=== PATIENT | male | born 1965 | race African-American/Black ===

== ENCOUNTER 2021-06-13 18:20 | Inpatient (IN) | payer MEDICAID, SELFPAY ==
[~2021-06-13] VITALS: Ht 172.7 cm; Wt 90.7 kg
[2021-06-13 18:29] VITALS: BP 101/71
--- NOTE | 2021-06-13 18:29 | NUR ---
biba to bed 11.
--- NOTE | 2021-06-13 18:46 | NUR ---
55 YO MALE BIBA C/O UNWITNESSED SYNCOPAL EPISODE AT HOME PT WAS FOUND ON THE FLOOR BY FAMILY. PT STATED HE WAS WALKING, FELT LIGHT HEADED THEN FAINTED. C/O CONTINUOUS HEADACHE 08/04 DESCRIBES THROBBING-ACHING, NON RADIATING. PT C/O SOB, LUNG SOUNDS DIMINISHED TO BILATERAL BASES. CAP REFIL <3SEC. NO EDEMA PRESENT. ABDOMEN DISTENDED, +ASCITIES. PATIENT A&OX4, EVEN AND UNLABORED RESPIRATIONS AT THIS TIME. PT LAYING IN BED WITH HOB AT 90 DEGREES. BED IN LOWEST POSITION, X2 SIDERAILS UP FOR SAFETY. hx of HTN, DM, and NM, CHF nkda
--- NOTE | 2021-06-13 19:26 | NUR ---
REPORT RECEIVED FROM HASMUKH HENRY, FOR CONTINUITY OF CARE
--- NOTE | 2021-06-13 19:26 | NUR ---
REPORT GIVEN TO SHEFALI HENRY, TRANSFER OF CARE AT THIS TIME.
--- NOTE | 2021-06-13 19:31 | NUR ---
Dr. Pereira examining patient.
[2021-06-13] MEDS ORDERED: NACL 0.9% 1,000 ML IV ONE (19:55)
[2021-06-13] MEDS ORDERED: methylPREDNISolone SS 125 MG/2 ML VIAL IVP ONE (20:15)
[2021-06-13] MEDS ORDERED: ALBUTEROL SULFATE/IPRATROPIU 3 ML SOL IH ONE (20:15)
[2021-06-13 20:25] LABS: BASOPHILS # (AUTO) 0.1 K/uL (0.00-0.22); BASOPHILS % (AUTO) 0.9 % (0.0-2.0); EOSINOPHILS % (AUTO) 0.7 % (0.0-4.0); HEMATOCRIT 42.8 % (36-52); HEMOGLOBIN 13.7 g/dL (12.0-18.0); LYMPHOCYTES # (AUTO) 1.4 K/uL (2.0-11.5); LYMPHOCYTES % (AUTO) 18.6 % (20.5-51.1); MEAN CORPUSCULAR HEMOGLOBIN 27 pg (27-31); MEAN CORPUSCULAR HGB CONC 32 g/dL (33-37); MEAN CORPUSCULAR VOLUME 84.4 fL (80-94); MONOCYTES # (AUTO) 0.7 K/uL (0.8-1.0); MONOCYTES % (AUTO) 9.7 % (1.7-9.3); NEUTROPHILS # (AUTO) 5.2 K/uL (1.8-7.7); NEUTROPHILS % (AUTO) 70.1 % (42.2-75.2); PLATELET COUNT (AUTO) 159 K/uL (140-450); RED BLOOD CELL COUNT(AUTO) 5.07 MIL/uL (4.20-6.10); RED CELL DISTRIBUTION WIDTH 19.6 % (11.6-13.7); WHITE BLOOD COUNT (AUTO) 7.5 K/uL (4.8-10.8)
--- NOTE | 2021-06-13 20:30 | NUR ---
EKG PERFORMED AT BEDSIDE. EKG READS SINUS RHYTHM @ 82
[2021-06-13 20:38] LABS: ALBUMIN 3.7 g/dL (3.4-5.0); ANION GAP 21.8 (8-16); ASPARTATE AMINOTRANSFERASE 33 U/L (15-37); CARBON DIOXIDE 20.1 mmol/L (21-32); CHLORIDE 102 mmol/L (98-107); GFR ARICAN-AMERICAN 45 mL/min (>90); GLUCOSE 83 mg/dL (74-106); SODIUM SERUM 138 mmol/L (136-145); TOTAL BILIRUBIN 2.1 mg/dL (0.0-1.0); UREA NITROGEN, BLOOD 22 mg/dL (7-18)
--- NOTE | 2021-06-13 20:41 | NUR ---
PT TAKEN TO CT
--- NOTE | 2021-06-13 20:41 | NUR ---
Lay mcdonald in [facility] - 06/13/21 at 2042 by PORSCHE PT TAKEN TO BED 11
[2021-06-13 20:54] LABS: POTASSIUM 5.9 mmol/L (3.5-5.1)
[2021-06-13] MEDS ORDERED: methylPREDNISolone SS 125 MG/2 ML VIAL ONE (21:24)
--- NOTE | 2021-06-13 21:30 | NUR ---
PATIENT APPEARS TO BE DIAPHORETIC AND COLD. WARM BLANKETS GIVEN, ACCUCHECK DONE. ERMD MADE AWARE
[2021-06-13] MEDS ORDERED: ENOXAPARIN 80 MG/0.8 ML SYR SUBQ ONE (22:45)
[2021-06-13] MEDS ORDERED: INSULIN REGULAR, HUMAN 100 UNIT/ML VIAL SUBQ ONE (23:05)
[2021-06-13] MEDS ORDERED: CALCIUM GLUCONATE 10% 1000 MG/10 ML VIAL IVP ONE (23:05)
[2021-06-13] MEDS ORDERED: DEXTROSE 50% 50 ML SYR IVP ONE (23:05)
[2021-06-13] MEDS ORDERED: INSULIN REGULAR, HUMAN 100 UNIT/ML VIAL IVP ONE (23:45)
--- NOTE | 2021-06-14 01:25 | NUR ---
CALLED [facility] FOR BED, SPOKE TO RADHA
[2021-06-14] MEDS ORDERED: QUET300T26 PO (01:36)
[2021-06-14] MEDS ORDERED: INSU100I7 SQ (01:36)
[2021-06-14] MEDS ORDERED: CARV6.252 PO (01:36)
[2021-06-14] MEDS ORDERED: CLOP75TA55 PO (01:36)
--- NOTE | 2021-06-14 01:39 | NUR ---
Patient will be admitted to care of DR. CELIS. Admited to TELEMMETRY. Will go to room 121 A. Belongings list completed. Report to LINDA HENRY.
--- NOTE | 2021-06-14 01:42 | NUR ---
RECIEVED PT ADMISSION FROM ER NURSE, PT BIB VIA MAT, ABLE TO SLIDE ONTO NEW BED W/ STANDY ASSISTANCE, A&0X4, ABLE TO FOLLOW COMMANDS, AFEBRILE, VSS (BP 111/88, MN 83, RR 17, TEMP 96.3, 02 SAT 96%), ON NC 3LPM, SKIN WARM DRY AND INTACT, ABD SOFT AND NON TENDER TO TOUCH, BELONGINGS AT BEDSIDE, PT SHOWING NO SIGNS OF ACUTE DISTRESS, SAFETY MEASURES IN PLACE, WILL CONTINUE WITH CURRENT POC
[2021-06-14 01:45] VITALS: BP 111/88
--- NOTE | 2021-06-14 02:45 | NUR ---
PT ASLEEP AND SHOWING NO SIGNS OF ACUTE DISTRESS
[2021-06-14 04:00] VITALS: BP 121/93
--- NOTE | 2021-06-14 04:49 | NUR ---
ASSISTED PT W/ MORNING CARE, PT SHOWING NO SIGNS OF ACUTE DISTRESS
[2021-06-14 06:10] LABS: CARBON DIOXIDE 18.5 mmol/L (21-32); CREATININE 2.2 mg/dL (0.6-1.3); POTASSIUM 5.5 mmol/L (3.5-5.1); TOTAL BILIRUBIN 2.4 mg/dL (0.0-1.0)
[2021-06-14 06:15] LABS: BASOPHILS % (AUTO) 0.4 % (0.0-2.0); EOSINOPHILS % (AUTO) 0.1 % (0.0-4.0); HEMATOCRIT 41.9 % (36-52); HEMOGLOBIN 13.3 g/dL (12.0-18.0); LYMPHOCYTES % (AUTO) 11.9 % (20.5-51.1); MEAN CORPUSCULAR HEMOGLOBIN 27 pg (27-31); MEAN CORPUSCULAR HGB CONC 32 g/dL (33-37); MEAN CORPUSCULAR VOLUME 84.6 fL (80-94); MONOCYTES # (AUTO) 0.5 K/uL (0.8-1.0); MONOCYTES % (AUTO) 5.7 % (1.7-9.3); NEUTROPHILS # (AUTO) 6.8 K/uL (1.8-7.7); NEUTROPHILS % (AUTO) 81.9 % (42.2-75.2); PLATELET COUNT (AUTO) 137 K/uL (140-450); RED BLOOD CELL COUNT(AUTO) 4.95 MIL/uL (4.20-6.10); RED CELL DISTRIBUTION WIDTH 20.3 % (11.6-13.7); WHITE BLOOD COUNT (AUTO) 8.3 K/uL (4.8-10.8)
--- NOTE | 2021-06-14 07:37 | NUR ---
ENDORSED TO DAY SHIFT RN FOR CONTINUITY OF CARE
--- NOTE | 2021-06-14 07:37 | NUR ---
RECEIVED BEDSIDE REPORT FROM MEDICAL LIAISON NURSE. PT SITTING IN BED, AWAKE AND ALERT. BREATHING EVEN AND UNLABORED, NO SIGNS OF ACUTE DISTRESS NOTED ON 3L NC. R AC 20G, EDER 20G SL. SAFETY MEASURES IN PLACE.
[2021-06-14 08:00] VITALS: BP 131/98
[2021-06-14] MEDS ORDERED: MORPHINE SULFATE 2 MG/ML SYR IVP PRN (08:25)
[2021-06-14] MEDS ORDERED: DOCUSATE SODIUM 100 MG GELCAP PO PRN (08:25)
[2021-06-14] MEDS ORDERED: HYDROcodone/APAP 5/325 MG 1 TAB TAB PO PRN (08:25)
[2021-06-14] MEDS ORDERED: ACETAMINOPHEN 325 MG TAB PO PRN (08:25)
[2021-06-14] MEDS ORDERED: ONDANSETRON 4 MG/2 ML VIAL IVP PRN (08:25)
[2021-06-14] MEDS ORDERED: DEXTROSE 50% 50 ML SYR IVP PRN ×2 (08:30→13:45)
[2021-06-14] MEDS ORDERED: SODIUM ZIRCONIUM CYCLOSILICATE 10 GM POWD.PACK PO SCH (09:00)
[2021-06-14] MEDS: NACL 0.9% 1,000 ML IV SCH (09:40)
[2021-06-14] MEDS: ENOXAPARIN 80 MG/0.8 ML SYR SUBQ SCH ×2 (09:41→20:53)
--- NOTE | 2021-06-14 09:43 | NUR ---
IP NETWORK ARCHITECT AT BEDSIDE AT THIS TIME. PATIENT STABLE.
[2021-06-14 09:50] LABS: PROTHROMBIN TIME 16.9 secs (10.8-13.4)
[2021-06-14 10:00] LABS: FREE T4 (FREE THYROXINE) 0.65 ng/dL (0.76-1.46); PHOSPHORUS 6.3 mg/dL (2.5-4.9); THYROID STIMULATING HORMONE 1.66 uIU/mL (0.34-3.74)
[2021-06-14] MEDS ORDERED: FUROSEMIDE 20 MG/2 ML VIAL IVP SCH (10:05)
--- NOTE | 2021-06-14 10:45 | NUR ---
ADMINISTERED SCHEDULED MEDS PER MD ORDER. MED EDUCATION PROVIDED, PATIENT VERBALIZES UNDERSTANDING.
[2021-06-14] MEDS: INSULIN LISPRO SLIDING SCALE 100 UNITS/ML VIAL SUBQ PRN ×3 (11:52→21:02)
[2021-06-14] MEDS: BLOOD GLUCOSE MONITORING 1 DEV DEV FS SCH ×3 (11:53→21:00)
[2021-06-14 12:00] VITALS: BP 123/62
[2021-06-14] MEDS ORDERED: INSULIN LISPRO SLIDING SCALE 100 UNITS/ML VIAL SUBQ PRN (13:45)
--- NOTE | 2021-06-14 15:49 | NUR ---
PATIENT HAS BEEN SCREENED AND CATEGORIZED LOW NUTRITION RISK. PATIENT WILL BE SEEN WITHIN 7 DAYS OF ADMISSION. 06/20/[address]
[2021-06-14 16:00] VITALS: BP 117/77
[2021-06-14] MEDS ORDERED: BLOOD GLUCOSE MONITORING 1 DEV DEV FS SCH (16:30)
--- NOTE | 2021-06-14 19:40 | NUR ---
ENDORSED TO NIGHTSHIFT NURSE FOR CONTINUITY OF CARE. PATIENT STABLE AT THIS TIME.
[2021-06-14 20:00] VITALS: BP 123/86
--- NOTE | 2021-06-14 20:00 | NUR ---
PATIENT WAS RECEIVED AWAKE BUT TALKATIVE SEEMS CONFUSED., IV WAS PULLED OUT BY THE PATIENT NEEDING A NEW ONE CHARGE NURSE PUT A NEW ONE IN PATIENTS LEFT FA, PICKED UP BY THE RADIOLOGY STAFF FOR VQ SCANNING.
--- NOTE | 2021-06-14 20:21 | NUR ---
HUMULIN R 5 UNITS UNSIGNED FOR UNKNOWN REASON. NO REPORT FROM PREVIOUS NURSE.
--- NOTE | 2021-06-14 20:24 | NUR ---
CALCIUM GLUCONATE 1 GRAM UNSIGNED FOR UNKNOWN REASON. NO REPORT FROM PREVIOUS NURSE.
[2021-06-14] MEDS: LORazepam 2 MG/ML VIAL IM/IVP PRN (21:17)
[2021-06-14] MEDS: FUROSEMIDE 20 MG/2 ML VIAL IVP SCH (21:24)
[2021-06-14] MEDS: carvediloL 6.25 MG TAB PO SCH (21:25)
[2021-06-14] MEDS: ZOLPIDEM 5 MG TAB PO PRN (22:39)
[2021-06-15] VITALS: BP 115/79
[2021-06-15 04:00] VITALS: BP 121/79
[2021-06-15] MEDS: FUROSEMIDE 20 MG/2 ML VIAL IVP SCH ×3 (05:00→21:01)
[2021-06-15 05:50] LABS: BASOPHILS % (AUTO) 0.1 % (0.0-2.0); HEMATOCRIT 38.2 % (36-52); HEMOGLOBIN 12.2 g/dL (12.0-18.0); LYMPHOCYTES # (AUTO) 0.8 K/uL (2.0-11.5); LYMPHOCYTES % (AUTO) 7.2 % (20.5-51.1); MEAN CORPUSCULAR HEMOGLOBIN 27 pg (27-31); MEAN CORPUSCULAR HGB CONC 32 g/dL (33-37); MEAN CORPUSCULAR VOLUME 83.2 fL (80-94); MONOCYTES # (AUTO) 0.7 K/uL (0.8-1.0); MONOCYTES % (AUTO) 6.3 % (1.7-9.3); NEUTROPHILS # (AUTO) 9.7 K/uL (1.8-7.7); NEUTROPHILS % (AUTO) 86.4 % (42.2-75.2); PLATELET COUNT (AUTO) 153 K/uL (140-450); RED BLOOD CELL COUNT(AUTO) 4.59 MIL/uL (4.20-6.10); RED CELL DISTRIBUTION WIDTH 19.8 % (11.6-13.7); WHITE BLOOD COUNT (AUTO) 11.2 K/uL (4.8-10.8)
[2021-06-15 06:02] LABS: CARBON DIOXIDE 21.9 mmol/L (21-32); CREATININE 1.8 mg/dL (0.6-1.3); POTASSIUM 4.9 mmol/L (3.5-5.1)
[2021-06-15 06:07] LABS: MAGNESIUM 2.3 mg/dL (1.8-2.4); PHOSPHORUS 3.8 mg/dL (2.5-4.9)
[2021-06-15] MEDS: BLOOD GLUCOSE MONITORING 1 DEV DEV FS SCH ×4 (07:40→21:15)
--- NOTE | 2021-06-15 07:45 | NUR ---
RECEIVED BEDSIDE REPORT FROM FRUIT PRESERVER NURSE. PATIENT SITTING ON SIDE OF BED, AWAKE AND ALERT, ABLE TO MAKE NEEDS KNOWN. BREATHING EVEN AND UNLABORED, NO SIGNS OF ACUTE DISTRESS NOTED. DENIES PAIN, SKIN INTACT. SAFETY MEASURES IN PLACE.
[2021-06-15 08:00] VITALS: BP 103/75
[2021-06-15] MEDS: NACL 0.9% 1,000 ML IV SCH (08:16)
[2021-06-15] MEDS: carvediloL 6.25 MG TAB PO SCH ×2 (09:00→21:02)
[2021-06-15] MEDS: ENOXAPARIN 80 MG/0.8 ML SYR SUBQ SCH ×2 (09:54→20:58)
[2021-06-15] MEDS: CLOPIDOGREL 75 MG TAB PO SCH (09:55)
[2021-06-15] MEDS: QUEtiapine FUMARATE 100 MG TAB PO SCH (09:55)
--- NOTE | 2021-06-15 09:55 | NUR ---
ADMINISTERED SCHEDULED MEDS PER MD ORDER. MED EDUCATION PROVIDED, REINFORCEMENT NEEDED. BP MED HELD DUE TO LOW BP, SEE VITAL SIGN INTERVENTIONS.
--- NOTE | 2021-06-15 10:00 | NUR ---
DR CELIS ROUNDING ON PATIENT AT BEDSIDE.
--- NOTE | 2021-06-15 11:17 | NUR ---
DC PLANNING: CM SPOKE WITH PATIENT AT BEDSIDE. PATIENT WAS VERY OUT OF BREATH, ABLE TO SPEAK IN SHORT SENTENCES. PATIENT BLACKED OUT AT HIS GIRLFRIEND'S HOUSE, STATES THIS IS FIRST TIME THIS HAS HAPPENED. HAS DIABETES AND CHF, NONCOMPLIANT WITH DIABETIC MANAGEMENT AND SMOKES. STATES HE IS ON LASIX, HAS BEEN SOB FOR SOME TIME, DOES TELEHEALTH VISITS WITH HIS PCP. LIVES IN A SECOND FLOOR APARTMENT WITH STAIR ACCESS, [place] BUT WAS VISITING HIS MOTHER AND GIRLFRIEND WHO LIVE LOCALLY. PATIENT LIVES ALONE, RECEIVES INCOME OF DISABILITY ($947/MO) AND FOOD STAMPS. HAS A GLUCOMETER WHICH HE STATES HE USES, NO OTHER DME OR HISTORY OF HOME HEALTH SERVICE. STATES HE WOULD LIKE A CANE OR FWW HE HOLDS ON TO FURNITURE AND QUINONEZ FOR STABILITY. PATIENT STATES HE WILL RETURN HOME ONCE DC'D, CM LET HIM KNOW THAT HE WILL NOT QUALIFY FOR O2. PATIENT ASKED ABOUT PAYING OUT OF POCKET, CM TOLD HIM THE AVERAGE COST, HE STATES HE CAN'T AFFORD IT. DISCUSSED SMOKING CESSATION AND MEDICATION COMPLIANCE WELL ADA DIET AND EXERCISE. CM WILL CONTINUE TO FOLLOW FOR NEEDS.
[2021-06-15 12:00] VITALS: BP 124/91
[2021-06-15] MEDS: INSULIN LISPRO SLIDING SCALE 100 UNITS/ML VIAL SUBQ PRN ×2 (12:00→16:57)
[2021-06-15] MEDS: LACTULOSE 20 GM/30 ML UDC PO SCH ×2 (13:30→20:57)
[2021-06-15 16:00] VITALS: BP 116/81
--- NOTE | 2021-06-15 17:57 | NUR ---
URINE SPECIMEN COLLECTED AND DELIVERED TO LABORATORY.
[2021-06-15 18:29] LABS: APPEARANCE,URINE CLEAR (CLEAR); BILIRUBIN,URINE NEGATIVE (NEGATIVE); BLOOD, URINE NEGATIVE (NEGATIVE); COLOR,URINE YELLOW (YELLOW); LEUKOCYTE ESTERASE ,URINE NEGATIVE (NEGATIVE); NITRITE, URINE NEGATIVE (NEGATIVE); PH,URINE 5.5 (5.0-9.0); UGLUCOSE NEGATIVE (NEGATIVE)
[2021-06-15 18:45] LABS: BARBITURATE, URINE NEGATIVE ng/ml (NEG <=200); BENZODIAZEPINE, URINE NEGATIVE ng/mL (NEG <=200); CANNABINOID, URINE NEGATIVE ng/mL (NEG <=50); COCAINE, URINE POSITIVE ng/mL (NEG <=300); OPIATE, URINE NEGATIVE ng/mL (NEG <=2000); PHENCYCLIDINE SCREEN,URINE NEGATIVE ng/mL (NEG <=25)
--- NOTE | 2021-06-15 19:49 | NUR ---
ENDORSED TO PROFILE GRINDER NURSE FOR CONTINUITY OF CARE. PATIENT STABLE AT THIS TIME.
--- NOTE | 2021-06-15 19:50 | NUR ---
RECEIVED REPORT FROM AM RN. PT AAOX3, W/ DELAYED RESPONSE DURING CONVERSATION, HOWEVER ABLE TO RESPOND, SPEECH, SLUGGISH IF HE WAS INTOXICATED. VS WNL, MOTHER AT BEDSIDE. PT PENDING ORDERED CT SCAN. AT PRESENT VS DONE WNL BP 113/80, P 92, RR 18, PO2 97% ON RA, NAD NOTED.WILL CONT TO MONITOR.
--- NOTE | 2021-06-15 19:53 | NUR ---
PT ON ROOM AIR WITH SPO2 OF 96%. PT IS IN NO RESPIRATORY DISTRESS AT THIS TIME.
[2021-06-15 20:00] VITALS: BP 113/80
--- NOTE | 2021-06-15 22:45 | NUR ---
PT SITTING UP IN BED, HE IS COMPLAINING OF 7/10 PAIN , HE WAS GIVEN IVP/PRN MORPHINE FOR BACK AND NECK PAIN. IV SITE INTACT AND FLUSHED PATENT. PT ALSO REDIRECTED TO LAY DOWN IN BED. 2 LITERS N/C AGAIN PLACE ON PT FOR C/OF SOB. ALL FALLS PRECAUTIONS IN PLACE.
--- NOTE | 2021-06-15 23:15 | NUR ---
MED PASS DONE, PT TOLERATED PO MEDS WELL, MOTHER AT BED SIDE. PT CALM AT PRESENT W/ FREQUENT BATHROOM RUNS S/P IV LASIX ADMIN. NO S/S OF DISTRESS NOTED.
[2021-06-16 00:05] VITALS: BP 131/89
[2021-06-16] MEDS: ZOLPIDEM 5 MG TAB PO PRN (00:41)
[2021-06-16] MEDS: LORazepam 2 MG/ML VIAL IM/IVP PRN (00:42)
[2021-06-16 04:00] VITALS: BP 127/84
[2021-06-16 05:35] LABS: BASOPHILS % (AUTO) 0.1 % (0.0-2.0); EOSINOPHILS % (AUTO) 0.5 % (0.0-4.0); HEMATOCRIT 39.6 % (36-52); HEMOGLOBIN 12.5 g/dL (12.0-18.0); LYMPHOCYTES # (AUTO) 1.8 K/uL (2.0-11.5); LYMPHOCYTES % (AUTO) 21.2 % (20.5-51.1); MEAN CORPUSCULAR HEMOGLOBIN 27 pg (27-31); MEAN CORPUSCULAR HGB CONC 32 g/dL (33-37); MEAN CORPUSCULAR VOLUME 84.8 fL (80-94); MONOCYTES # (AUTO) 0.7 K/uL (0.8-1.0); MONOCYTES % (AUTO) 8.4 % (1.7-9.3); NEUTROPHILS % (AUTO) 69.8 % (42.2-75.2); PLATELET COUNT (AUTO) 158 K/uL (140-450); RED BLOOD CELL COUNT(AUTO) 4.67 MIL/uL (4.20-6.10); RED CELL DISTRIBUTION WIDTH 20.3 % (11.6-13.7); WHITE BLOOD COUNT (AUTO) 8.6 K/uL (4.8-10.8)
[2021-06-16 06:15] LABS: ANION GAP 13.1 (8-16); CARBON DIOXIDE 25.7 mmol/L (21-32); CREATININE 1.4 mg/dL (0.6-1.3); POTASSIUM 3.8 mmol/L (3.5-5.1)
[2021-06-16 06:37] LABS: MAGNESIUM 2.3 mg/dL (1.8-2.4); PHOSPHORUS 3.6 mg/dL (2.5-4.9)
[2021-06-16] MEDS: BLOOD GLUCOSE MONITORING 1 DEV DEV FS SCH ×4 (06:47→20:26)
[2021-06-16] MEDS: FUROSEMIDE 20 MG/2 ML VIAL IVP SCH ×2 (06:47→12:36)
--- NOTE | 2021-06-16 07:30 | NUR ---
REPORT TO AM RN. PT GIVEN AM LASIX 40 MG IVP, BS DONE 122 MG/DL. ASLEEP AT INTERVALS, RESTLESS AT TIMES, AT PRESENT CALM, RESTING. NAD NOTED.
--- NOTE | 2021-06-16 07:32 | NUR ---
RECEIVED REPORT FROM OPTICAL ADVISOR NURSE. SHE REPORTS THAT PT WAS STABLE ALL NIGHT. HAD CT LAST NIGHT, RESULTS PENDING. LAST BP WAS 127/84 AND HR 93. AA&O X 3 WITH SOME DELAYS. CARDIAC RHYTHM SINUS TACH. LAST BLOOD GLUCOSE THIS MORNING WAS 122. HAS PATENT IV IN L FOREARM 22 GAUGE SET FOR 20 ML, CURRENTLY ON HOLD. PATIENT CURRENTLY STABLE. WILL CONTINUE TO MONITOR.
[2021-06-16 08:00] VITALS: BP 137/100
[2021-06-16] MEDS: NACL 0.9% 1,000 ML IV SCH (09:35)
[2021-06-16] MEDS: carvediloL 6.25 MG TAB PO SCH ×2 (09:45→20:24)
[2021-06-16] MEDS: QUEtiapine FUMARATE 100 MG TAB PO SCH (09:45)
[2021-06-16] MEDS: LACTULOSE 20 GM/30 ML UDC PO SCH (09:46)
[2021-06-16] MEDS: CLOPIDOGREL 75 MG TAB PO SCH (09:46)
[2021-06-16] MEDS: ENOXAPARIN 80 MG/0.8 ML SYR SUBQ SCH (09:47)
--- NOTE | 2021-06-16 09:52 | NUR ---
ADMINISTERED 0900 MEDS. BP 137/100 AND HR WNL FOR CARVEDOLOL. PLATELETS AND APTT WNL FOR LOVENOX. PATIENT TOLERATED WELL. WILL CONTINUE TO MONITOR.
[2021-06-16] MEDS: INSULIN LISPRO SLIDING SCALE 100 UNITS/ML VIAL SUBQ PRN ×2 (11:34→20:20)
[2021-06-16 12:00] VITALS: BP 125/90
--- NOTE | 2021-06-16 12:00 | NUR ---
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 SAFETY MEASURES IN PLACE AND CALL LIGHT WITHIN REACH. WILL CONTINUE TO MONITOR.
--- NOTE | 2021-06-16 13:00 | NUR ---
PT PULLED OUT HIS IV. PLACED GAUZE AND BANDAGE TO COVER SITE. WILL CONTINUE TO MONITOR.
--- NOTE | 2021-06-16 15:30 | NUR ---
PLACED 22 GAUGE IV IN L FOREARM. CONFIRMED PLACEMENT AND PATENCY. WILL CONTINUE TO MONITOR.
[2021-06-16 16:00] VITALS: BP 124/95
--- NOTE | 2021-06-16 16:00 | NUR ---
PATIENT SEEN BY DR CORTEZ AND GAVE PT STATUS .
[2021-06-16 16:26] LABS: CREATININE,URINE RANDOM 37 mg/dL (30-125); URINE SODIUM, RANDOM 32 mmol/l (40-220)
--- NOTE | 2021-06-16 17:03 | NUR ---
BLOOD SUGAR 95 MG/DL NO INSULIN COVERAGE GIVEN PT IS DROWSY AND SITTING.WILL CONTINUE TO MONITOR.
[2021-06-16] MEDS ORDERED: LACTULOSE 20 GM/30 ML UDC PO SCH (17:20)
--- NOTE | 2021-06-16 19:30 | NUR ---
RECEIVED REPORT AT BEDSIDE FOR CONTINUITY OF CARE, PT IN STABLE CONDITION. PT LYING IN BED, HE HAS N/C OFF. HE IS DROWSY BUT AROUSABLE TO NAME AND LIGHT TOUCH. ENCOURAGED PT TO PLACE ON N/C, BUT HE SAID HE DOESN'T WANT IT ON AT THIS TIME. HE HAS A R/FA 20G INTACT. NOT RUNNING NORMAL SALINE AT THIS TIME, BECAUSE PT KEEPS GETTING OUT OF BED AND OR AT LEAST MOVING AROUND IN BED AND SITTING UP. PT HAS NOT BEEN CAREFUL WITH IV SITE AND RECENTLY PULLED OUT HIS PREVIOUS IV SITE LAST SHIFT. IV SITE LIGHTLY WRAPPED UP WITH DEMETRA BANDAGE IT WAS FLUSHED PATENT WITH NO RESISTANCE. ALL FALLS PRECAUTIONS IN PLACE. FAMILY VISITOR AT BEDSIDE. ALL FALLS PRECAUTIONS IN PLACE.
--- NOTE | 2021-06-16 19:31 | NUR ---
ENDORSED TO NIGHT NURSE FOR CONTINUITY OF CARE.
[2021-06-16 20:00] VITALS: BP 117/88
--- NOTE | 2021-06-16 20:10 | NUR ---
VISITOR LEFT BEDSIDE, PT IS AWAKE, BUT REMAINS CONFUSED, V/S FOLLOWS: T 97.7 P 90 R 18 B/P 117/88 02 100% WITH 2 LITERS VIA N/C. PT FINGERSTICK IS 159. PT REDIRECTED TO STAY IN BED BECAUSE HE IS A FALLS RISK. URINAL AND TRAY TABLE WITHIN REACH. ALL FALLS PRECAUTIONS IN PLACE.
--- NOTE | 2021-06-16 21:00 | NUR ---
PT GIVEN 2 UNITS OF HUMALOG PER SLIDING SCALE, PT ALSO GIVEN COREG ORDERED. EDUCATION REGARDING MEDICATION PROVIDED AT BEDSIDE, REINFORCEMENT NEEDED. PT AGAIN PLACED ON 2 LITERS AND ENCOURAGE TO KEEP 02 ON. PT ABDOMEN FIRM AND DISTENDED. PT REDIRECTED NOT TO GET OUT OF BED UNASSISTED. PT WAS NOTED SITING UP IN BED AND THE STANDING OVER BED MAKING HIS BED. PT ASSISTED TO BE MADE COMFORTABLE AND REMINDED THAT HE IS A FALLS RISK AND TO STAY IN BED, IF HE NEEDS TO USE THE TOILET FOR A BM TO HAVE STAFF ASSIST HIM. PT VERBALIZED UNDERSTANDING. WILL CONTINUE WITH FALLS PROTOCOLS AND FREQUENT ROUNDS.
--- NOTE | 2021-06-16 22:45 | NUR ---
PT SITING UP IN BED, HE HAS C/O OF 8/10 PAIN, HE WAS GIVEN PRN IVP MORPHINE, PT ENCOURAGED TO LAY DOWN IN BED AND PLACE 02 ON. TRAY TABLE AND URINAL AT BEDSIDE. ALL OTHER FALLS PRECAUTIONS IN PLACE.
[2021-06-17] VITALS: BP 126/84
--- NOTE | 2021-06-17 00:30 | NUR ---
PT SITTING UP IN BED NO C/O VOICED V/S FOLLOWS: T 97.9 P 94 R 18 B/P 126/84 02 96% ON ROOM AIR. ALL FALLS PRECAUTIONS IN PLACE. PT SAID HE IS OK WITH NO C/O VOICED.
--- NOTE | 2021-06-17 02:00 | NUR ---
PT SITTING UP IN BED, NO C/O VOICED ALL FALLS PRECAUTIONS IN PLACE.
[2021-06-17 04:00] VITALS: BP 151/94
[2021-06-17 05:34] LABS: BASOPHILS # (AUTO) 0.1 K/uL (0.00-0.22); BASOPHILS % (AUTO) 1.8 % (0.0-2.0); EOSINOPHILS # (AUTO) 0.1 K/uL (0-0.4); EOSINOPHILS % (AUTO) 2.2 % (0.0-4.0); HEMOGLOBIN 12.8 g/dL (12.0-18.0); LYMPHOCYTES # (AUTO) 1.5 K/uL (2.0-11.5); LYMPHOCYTES % (AUTO) 24.9 % (20.5-51.1); MEAN CORPUSCULAR HEMOGLOBIN 27 pg (27-31); MEAN CORPUSCULAR HGB CONC 32 g/dL (33-37); MEAN CORPUSCULAR VOLUME 83.4 fL (80-94); MONOCYTES # (AUTO) 0.9 K/uL (0.8-1.0); MONOCYTES % (AUTO) 15.1 % (1.7-9.3); NEUTROPHILS # (AUTO) 3.5 K/uL (1.8-7.7); PLATELET COUNT (AUTO) 163 K/uL (140-450); RED CELL DISTRIBUTION WIDTH 20.4 % (11.6-13.7); WHITE BLOOD COUNT (AUTO) 6.2 K/uL (4.8-10.8)
[2021-06-17 05:42] LABS: MAGNESIUM 2.2 mg/dL (1.8-2.4); PHOSPHORUS 4.3 mg/dL (2.5-4.9)
[2021-06-17 05:44] LABS: ANION GAP 12.7 (8-16); CREATININE 1.1 mg/dL (0.6-1.3); POTASSIUM 3.7 mmol/L (3.5-5.1)
--- NOTE | 2021-06-17 06:00 | NUR ---
PT FINGERSTICK IS 115, NO HUMALOG COVERAGE NEEDED. PT ASSISTED BACK TO BED. ALL FALLS PRECAUTIONS IN PLACE.
--- NOTE | 2021-06-17 07:20 | NUR ---
REPORT RECEIVED FROM CADD INSTRUCTOR RN AT BEDSIDE FOR CONTINUITY OF CARE. PATIENT AWAKE, SITTING ON SIDE OF BED, BED LOCK ON LOWEST SETTING WITH ALARM ON. PT ON ROOM AIR, O2 SAT 96%, RESPIRATIONS EVEN AND UNLABORED ON ROOM AIR. PT DENIES PAIN, ALL NEEDS MET AT THIS TIME. PT ASKED WHEN HE COULD GO HOME. INFORMED HIM THAT WE WILL KNOW WHEN THE DOCTOR DOES THEIR ROUNDS. PATIENT VERBALIZED UNDERSTANDING. SAFETY PRECAUTIONS IN PLACE, CALL LIGHT WITHIN REACH, WILL CONTINUE TO MONITOR PATIENT.
[2021-06-17] MEDS: BLOOD GLUCOSE MONITORING 1 DEV DEV FS SCH (07:36)
[2021-06-17 08:00] VITALS: BP 122/89
[2021-06-17] MEDS: NACL 0.9% 1,000 ML IV SCH (08:25)
--- NOTE | 2021-06-17 08:50 | NUR ---
DR BROWN DOING HIS ROUNDS. STATED PATIENT WILL BE DISCHARGED TODAY, PATIENT AWARE.
[2021-06-17] MEDS ORDERED: LACTULOSE 20 GM/30 ML UDC PO SCH (09:00)
[2021-06-17] MEDS ORDERED: QUEtiapine FUMARATE 100 MG TAB PO SCH (09:00)
[2021-06-17] MEDS ORDERED: SENNA 8.6 MG TAB PO SCH (09:00)
--- NOTE | 2021-06-17 09:27 | NUR ---
ORDERED MEDICATIONS GIVEN. PATIENT TOLERATED THEM. NO COMPLAINTS AT THIS TIME. CALL LIGHT WITHIN REACH, WILL CONTINUE TO MONITOR PATIENT.
[2021-06-17] MEDS: carvediloL 6.25 MG TAB PO SCH (09:28)
[2021-06-17] MEDS ORDERED: QUET300T26 PO (09:53)
[2021-06-17] MEDS ORDERED: LACT-103 PO (09:53)
[2021-06-17] MEDS ORDERED: INSU100I7 SQ (09:53)
[2021-06-17] MEDS ORDERED: SPIR50TA PO (09:53)
--- NOTE | 2021-06-17 10:30 | NUR ---
DISCHARGE INSTRUCTIONS AND EDUCATION GIVEN TO PATIENT AND HIS MOTHER. THEY VERBALIZED UNDERSTANDING ABOUT DISCHARGE PLANNING, FOLLOW UP WITH HIS PCP IN 3-5 DAYS, TAKING HIS MEDICATIONS PRESCRIBED. IV REMOVED, IV CANNULA INTACT, MINIMAL BLEEDING NOTED. ID BANDS REMOVED. PATIENT NOW WILL CHANGE INTO HIS OWN CLOTHING AND BE DISCHARGED HOME WITH HIS MOTHER.
--- NOTE | 2021-06-17 10:45 | NUR ---
PATIENT DISCHARGED FROM FLOOR WITH MOTHER TO GO HOME. PATIENT AMBULATED STEADILY BUT SLOWLY. PATIENT TOOK HIS BELONGINGS WITH HIM.
[2021-06-18 09:06] LABS: AFP (TUMOR MARKER) 2.8 ng/mL (0.0-8.3)
[2021-06-24 08:08] LABS: HEPATITIS A ANTIBODY IGM Negative (Negative); HEPATITIS B CORE AB TOTAL Negative (Negative); HEPATITIS B SURFACE ANTIBODY Non Reactive (.); HEPATITIS B SURFACE ANTIGEN Negative (Negative)
[2021-06-24 15:14] LABS: HEPATITIS A ANTIBODY IGM NEGATIVE (NEGATIVE); HEPATITIS B CORE AB TOTAL NEGATIVE (NEGATIVE); HEPATITIS B SURFACE ANTIBODY NON REACTIVE (NONREACTIVE); HEPATITIS B SURFACE ANTIGEN NEGATIVE (NEGATIVE)
== END 2021-06-17 10:45 | disposition home or self-care (01) | DRG 48 ==
LOC: MED 18:20 → MTU 23:49
PROVIDERS: ADMIT Family Medicine; ATTEND Family Medicine
DX: G90.9 Disorder of the autonomic nervous system, unspecified (principal); N17.0 Acute kidney failure with tubular necrosis; J96.01 Acute respiratory failure with hypoxia; I50.43 Acute on chronic combined systolic (congestive) and diastolic (congestive) heart failure; E87.5 Hyperkalemia; E87.2 Acidosis; E11.22 Type 2 diabetes mellitus with diabetic chronic kidney disease; I12.9 Hypertensive chronic kidney disease with stage 1 through stage 4 chronic kidney disease, or unspecified chronic kidney disease; N18.9 Chronic kidney disease, unspecified; Z20.822 Contact with and (suspected) exposure to COVID-19; W18.30XA Fall on same level, unspecified, initial encounter; J98.11 Atelectasis; F32.9 Major depressive disorder, single episode, unspecified; F17.200 Nicotine dependence, unspecified, uncomplicated; K72.90 Hepatic failure, unspecified without coma; I42.0 Dilated cardiomyopathy; I07.1 Rheumatic tricuspid insufficiency; F14.10 Cocaine abuse, uncomplicated; Z86.73 Personal history of transient ischemic attack (TIA), and cerebral infarction without residual deficits; Y93.89 Activity, other specified; Y92.89 Other specified places as the place of occurrence of the external cause; Y99.8 Other external cause status
CPT/HCPCS: 36415; 36600; 70450; 71045; 76705; 76770; 78582; 80048; 80053; 80305; 81003; 82105; 82140; 82150; 82570; 82803; 82948; 83036; 83605; 83690; 83735; 83880; 84100; 84300; 84439; 84443; 84484; 85025; 85379; 85610; 85730; 86704; 86706; 86708; 86709; 86803; 87081; 87340; 93005; 93880; 93925; 93970; 94640; 96361; 96372; 96374; 96375; 97163-GP; 99285; G0482; J0610; J1650; J1815; J1940; J2060; J2270; J2930

== ENCOUNTER 2021-06-20 19:10 | Inpatient (IN) | payer MEDICAID, SELFPAY ==
[~2021-06-20] VITALS: Ht 175.3 cm; Wt 79.4 kg
[~2021-06-20 19:10] MED LIST: CARV6.252 PO; CLOP75TA55 PO; INSU100I7 SQ; LACT-103 PO; QUET300T26 PO; SPIR50TA PO
[2021-06-20 19:20] VITALS: BP 131/76
[2021-06-20] MEDS ORDERED: FUROSEMIDE 40 MG TAB PO ONE (21:20)
[2021-06-20] MEDS ORDERED: carvediloL 6.25 MG TAB PO ONE (21:20)
[2021-06-20 22:01] LABS: BASOPHILS # (AUTO) 0.1 K/uL (0.00-0.22); EOSINOPHILS # (AUTO) 0.1 K/uL (0-0.4); EOSINOPHILS % (AUTO) 2.3 % (0.0-4.0); HEMATOCRIT 42.1 % (36-52); HEMOGLOBIN 13.3 g/dL (12.0-18.0); LYMPHOCYTES # (AUTO) 1.3 K/uL (2.0-11.5); LYMPHOCYTES % (AUTO) 25.2 % (20.5-51.1); MEAN CORPUSCULAR HEMOGLOBIN 26 pg (27-31); MEAN CORPUSCULAR HGB CONC 32 g/dL (33-37); MONOCYTES # (AUTO) 0.8 K/uL (0.8-1.0); MONOCYTES % (AUTO) 15.3 % (1.7-9.3); NEUTROPHILS # (AUTO) 2.8 K/uL (1.8-7.7); NEUTROPHILS % (AUTO) 56.2 % (42.2-75.2); PLATELET COUNT (AUTO) 154 K/uL (140-450); RED BLOOD CELL COUNT(AUTO) 5.08 MIL/uL (4.20-6.10); RED CELL DISTRIBUTION WIDTH 20.3 % (11.6-13.7)
[2021-06-20 22:18] LABS: PROTHROMBIN TIME 11.2 secs (10.8-13.4)
[2021-06-20 22:20] LABS: ALBUMIN 3.5 g/dL (3.4-5.0); ANION GAP 9.2 (8-16); CARBON DIOXIDE 27.6 mmol/L (21-32); CREATININE 1.2 mg/dL (0.6-1.3); POTASSIUM 3.8 mmol/L (3.5-5.1); TOTAL BILIRUBIN 1.7 mg/dL (0.0-1.0)
[2021-06-21] MEDS ORDERED: ACETAMINOPHEN EXTRA STRENGTH 500 MG TAB PO ONE (00:45)
[2021-06-21] MEDS ORDERED: MORPHINE SULFATE 2 MG/ML SYR IVP ONE (01:50)
[2021-06-21] MEDS ORDERED: FUROSEMIDE 40 MG/4 ML VIAL IVP SCH (01:50)
[2021-06-21] MEDS ORDERED: PIPERACILLIN/TAZOBACTAM 3.375 GM in DEXTROSE 5% 50 ML IV ONE (01:50)
[2021-06-21] MEDS ORDERED: PIPERACILLIN/TAZOBACTAM 3.375 GM VIAL IV ONE (02:53)
[2021-06-21 05:10] VITALS: BP 112/84
[2021-06-21] MEDS ORDERED: ZOLPIDEM 5 MG TAB PO PRN (07:05)
[2021-06-21] MEDS ORDERED: HYDROcodone/APAP 7.5/325 MG 1 TAB PO PRN (07:05)
[2021-06-21] MEDS ORDERED: guaiFENesin DM 200/20 MG-10 ML 10 ML UDC PO PRN (07:05)
[2021-06-21] MEDS ORDERED: ACETAMINOPHEN 325 MG TAB PO PRN (07:05)
[2021-06-21] MEDS ORDERED: ONDANSETRON 4 MG/2 ML VIAL IM/IVP PRN (07:05)
[2021-06-21] MEDS ORDERED: DOCUSATE SODIUM 100 MG GELCAP PO PRN (07:05)
[2021-06-21] MEDS ORDERED: POTASSIUM CHLORIDE 10 MEQ TABER PO PRN (07:05)
[2021-06-21] MEDS ORDERED: FURO-572 PO (07:22)
[2021-06-21 08:00] VITALS: BP 112/74
[2021-06-21] MEDS ORDERED: INSULIN GLARGINE HUM REC ANLOG 10 UNIT SQ SCH (09:00)
[2021-06-21] MEDS: carvediloL 6.25 MG TAB PO SCH (09:00)
[2021-06-21] MEDS ORDERED: NON-FORMULARY ITEM (Lactulose 30 ML) PO SCH (09:00)
[2021-06-21] MEDS ORDERED: QUETIAPINE FUMARATE 100 MG PO SCH (09:00)
[2021-06-21] MEDS: LACTULOSE 20 GM/30 ML UDC PO SCH ×2 (09:13→21:23)
[2021-06-21] MEDS: QUEtiapine FUMARATE 100 MG TAB PO SCH (09:14)
[2021-06-21] MEDS: PANTOPRAZOLE 40 MG TABEC PO SCH (09:15)
[2021-06-21] MEDS: FUROSEMIDE 20 MG/2 ML VIAL IVP SCH ×3 (09:17→21:32)
[2021-06-21] MEDS: CLOPIDOGREL 75 MG TAB PO SCH (09:19)
[2021-06-21] MEDS: INSULIN LANTUS 100 UNITS/ML 10 ML VIAL SUBQ SCH (09:34)
[2021-06-21 09:44] LABS: CHOL/HDL RATIO 5.3 (1-4.5); FREE T4 (FREE THYROXINE) 0.94 ng/dL (0.76-1.46); PHOSPHORUS 4.2 mg/dL (2.5-4.9); THYROID STIMULATING HORMONE 2.94 uIU/mL (0.34-3.74)
[2021-06-21] MEDS: SPIRONOLACTONE 50 MG TAB PO SCH (10:40)
[2021-06-21 12:00] VITALS: BP 139/95
[2021-06-21 13:04] LABS: APPEARANCE,URINE CLEAR (CLEAR); BILIRUBIN,URINE NEGATIVE (NEGATIVE); BLOOD, URINE NEGATIVE (NEGATIVE); COLOR,URINE YELLOW (YELLOW); LEUKOCYTE ESTERASE ,URINE NEGATIVE (NEGATIVE); NITRITE, URINE NEGATIVE (NEGATIVE); UGLUCOSE NEGATIVE (NEGATIVE)
[2021-06-21 13:35] LABS: BARBITURATE, URINE NEGATIVE ng/ml (NEG <=200); BENZODIAZEPINE, URINE NEGATIVE ng/mL (NEG <=200); CANNABINOID, URINE NEGATIVE ng/mL (NEG <=50); COCAINE, URINE POSITIVE ng/mL (NEG <=300); OPIATE, URINE POSITIVE ng/mL (NEG <=2000); PHENCYCLIDINE SCREEN,URINE NEGATIVE ng/mL (NEG <=25)
[2021-06-21 16:00] VITALS: BP 121/97
[2021-06-21 20:00] VITALS: BP 134/99
[2021-06-22] VITALS: BP 134/99
[2021-06-22] MEDS ORDERED: QUEtiapine FUMARATE 100 MG TAB PO ONE
[2021-06-22] MEDS ORDERED: FUROSEMIDE 40 MG TAB PO SCH ×2 (01:00→09:00)
[2021-06-22 04:00] VITALS: BP 127/97
[2021-06-22 07:08] LABS: BASOPHILS # (AUTO) 0.1 K/uL (0.00-0.22); BASOPHILS % (AUTO) 1.4 % (0.0-2.0); EOSINOPHILS # (AUTO) 0.1 K/uL (0-0.4); EOSINOPHILS % (AUTO) 2.5 % (0.0-4.0); HEMATOCRIT 39.8 % (36-52); HEMOGLOBIN 12.7 g/dL (12.0-18.0); LYMPHOCYTES # (AUTO) 1.7 K/uL (2.0-11.5); LYMPHOCYTES % (AUTO) 38.9 % (20.5-51.1); MEAN CORPUSCULAR HEMOGLOBIN 26 pg (27-31); MEAN CORPUSCULAR HGB CONC 32 g/dL (33-37); MEAN CORPUSCULAR VOLUME 82.2 fL (80-94); MONOCYTES # (AUTO) 0.6 K/uL (0.8-1.0); NEUTROPHILS # (AUTO) 1.9 K/uL (1.8-7.7); NEUTROPHILS % (AUTO) 43.2 % (42.2-75.2); PLATELET COUNT (AUTO) 156 K/uL (140-450); RED BLOOD CELL COUNT(AUTO) 4.84 MIL/uL (4.20-6.10); RED CELL DISTRIBUTION WIDTH 20.6 % (11.6-13.7); WHITE BLOOD COUNT (AUTO) 4.4 K/uL (4.8-10.8)
[2021-06-22 07:19] LABS: ANION GAP 14.7 (8-16); CARBON DIOXIDE 24.3 mmol/L (21-32); CREATININE 1.2 mg/dL (0.6-1.3)
[2021-06-22 08:00] VITALS: BP 122/89
[2021-06-22] MEDS: QUEtiapine FUMARATE 100 MG TAB PO SCH ×2 (09:00→09:29)
[2021-06-22] MEDS: carvediloL 6.25 MG TAB PO SCH (09:00)
[2021-06-22] MEDS ORDERED: ECOTRIN 81 MG TABEC PO SCH (09:00)
[2021-06-22] MEDS: PANTOPRAZOLE 40 MG TABEC PO SCH (09:29)
[2021-06-22] MEDS: LACTULOSE 20 GM/30 ML UDC PO SCH (09:29)
[2021-06-22] MEDS: SPIRONOLACTONE 50 MG TAB PO SCH (09:29)
[2021-06-22] MEDS: CLOPIDOGREL 75 MG TAB PO SCH (09:30)
[2021-06-22] MEDS: INSULIN LANTUS 100 UNITS/ML 10 ML VIAL SUBQ SCH (09:49)
[2021-06-22] MEDS ORDERED: QUEtiapine FUMARATE 100 MG TAB PO SCH (21:00)
[2021-06-23 06:07] LABS: HEPATITIS A ANTIBODY IGM Negative (Negative); HEPATITIS B SURFACE ANTIGEN Negative (Negative)
[2021-06-23 12:07] LABS: T4 (THYROXINE) 5.3 ug/dL (4.5-12.0)
== END 2021-06-22 10:20 | disposition left against medical advice (07) | DRG 194 ==
LOC: MED 19:10 → MTU 06-21 03:57
PROVIDERS: ADMIT Family Medicine; ATTEND Family Medicine
DX: I11.0 Hypertensive heart disease with heart failure (principal); N17.0 Acute kidney failure with tubular necrosis; R65.11 Systemic inflammatory response syndrome (SIRS) of non-infectious origin with acute organ dysfunction; G93.41 Metabolic encephalopathy; R18.8 Other ascites; I50.43 Acute on chronic combined systolic (congestive) and diastolic (congestive) heart failure; K80.20 Calculus of gallbladder without cholecystitis without obstruction; E11.9 Type 2 diabetes mellitus without complications; E78.2 Mixed hyperlipidemia; F14.10 Cocaine abuse, uncomplicated; F12.10 Cannabis abuse, uncomplicated; K42.9 Umbilical hernia without obstruction or gangrene; I25.10 Atherosclerotic heart disease of native coronary artery without angina pectoris; K74.60 Unspecified cirrhosis of liver; N28.89 Other specified disorders of kidney and ureter; E87.1 Hypo-osmolality and hyponatremia; K57.30 Diverticulosis of large intestine without perforation or abscess without bleeding; J98.11 Atelectasis; Z20.822 Contact with and (suspected) exposure to COVID-19; Z79.899 Other long term (current) drug therapy; Z86.73 Personal history of transient ischemic attack (TIA), and cerebral infarction without residual deficits; Z95.5 Presence of coronary angioplasty implant and graft
CPT/HCPCS: 36415; 71045; 76705; 80048; 80053; 80074; 80305; 81003; 82150; 82948; 83036; 83690; 83735; 83880; 84100; 84436; 84439; 84443; 84479; 84484; 85025; 85610; 85730; 87040; 87081; 93005; 96365; 96375; 99285; J1815; J1940; J2270; J2543